=== PATIENT | female | born 1945 | race Native Hawaiian/Other Pacific Islander ===

== ENCOUNTER → 2021-01-15 14:17 | Outpatient (CLI) | payer MEDICARE, OTHER, SELFPAY ==
--- NOTE | 2021-01-15 | DI.MG.S_ITS ---
BILATERAL DIGITAL SCREENING MAMMOGRAM 3D/2D WITH CAD: 01/15/2021 CLINICAL: Routine screening. Family history of breast cancer. Comparison is made to exams dated: 05/04/2016 mammogram, 04/21/2015 mammogram, and 05/09/2013 mammogram - [facility]. There are scattered fibroglandular elements in both breasts. Current study was also evaluated with a Computer Aided Detection (CAD) system. There is a benign mass in the right breast. There also are benign calcifications in the right breast. No significant masses, calcifications, or other findings are seen in either breast. There has been no significant interval change. IMPRESSION: BENIGN There is no mammographic evidence of malignancy. A 1 year screening mammogram is recommended. This exam was interpreted at Station ID: [id number]. NOTE: For mammograms, a report in lay terms will be sent to the patient. Approximately 15% of breast malignancies will not be visualized mammographically. In the management of a palpable breast mass, a negative mammogram must not discourage biopsy of a clinically suspicious lesion. Electronically Signed By: Ivelisse ramirez/[place]:01/15/2021 15:17:48 letter sent: Normal Exam ACR BI-RADS Category 2: Benign Finding(s) 3342F
== END ==
PROVIDERS: PCP Internal Medicine; Referring Provider Internal Medicine; Visit Provider Internal Medicine
DX: Z12.31 Encounter for screening mammogram for malignant neoplasm of breast (principal); Z80.3 Family history of malignant neoplasm of breast
CPT/HCPCS: 77063; 77067

== ENCOUNTER → 2021-02-27 14:49 | Outpatient (CLI) | payer MEDICARE, OTHER, SELFPAY ==
--- NOTE | 2021-02-27 | DI.RAD.S_ITS ---
PROCEDURE: XR CHEST 2V INDICATIONS: HEMOPTYSIS TECHNIQUE: 2 views of the chest were acquired. COMPARISON: [facility], CT, CT CHEST WO CON, 03/03/2021, 14:45. FINDINGS: Surgical changes and devices: None. Lungs and pleura: Diffuse bilateral interstitial opacities. There is a calcification in the left upper lung field in the left upper hilum. Bullous changes in the left lower lung. Lungs are clear. No pleural effusions or pneumothorax. Mediastinum: Mediastinal contours are normal. Heart size is normal. Bones and chest wall: No suspicious bony abnormalities. Soft tissues appear unremarkable. IMPRESSION: 1. Bullous changes in the left lower lung field. 2. Calcifications in the left hilum/left upper lobe. Dictated by: Shiraz [place] M.D. on 03/06/2021 at 8:21 Approved by: Shiraz [place] M.D. on 03/06/2021 at 8:23
== END ==
PROVIDERS: PCP Internal Medicine; Referring Provider Internal Medicine; Visit Provider Internal Medicine
DX: R04.2 Hemoptysis (principal); J98.4 Other disorders of lung; M40.294 Other kyphosis, thoracic region
CPT/HCPCS: 71046

== ENCOUNTER → 2021-03-03 14:40 | Outpatient (CLI) | payer MEDICARE, OTHER, SELFPAY ==
--- NOTE | 2021-03-03 | DI.CT.S_ITS ---
PROCEDURE: CT CHEST WO CON INDICATIONS: Hemoptysis TECHNIQUE: Noncontrast 5 mm thick sections acquired from the pulmonary apices to the posterior costophrenic angles. 1 mm lung window, 5 mm thick coronal and sagittal and 7 mm axial MIP reformats were then acquired. For radiation dose reduction, the following was used: automated exposure control, adjustment of mA and/or kV according to patient size. COMPARISON: The prior recent chest radiograph dated 02/27/2021 is not available for viewing at the time of this study. FINDINGS: Image quality: Excellent. Lungs and pleura: Within the left lung, prominent peribronchial cysts are seen. Associated left-sided volume loss can be seen. No acute air space opacities. No pleural effusions or pneumothorax. Central and peripheral airways are patent and normal in caliber. Mediastinum: Heart size is normal. No pericardial effusion. No mediastinal adenopathy by size criteria. Calcified mediastinal lymph nodes are seen. Thoracic aorta and central pulmonary arteries are normal in size. Esophagus is normal in caliber. No hiatal hernia. Bones and chest wall: No suspicious bony lesions. Accentuated thoracic kyphosis is seen. Age-appropriate bony degenerative changes are seen. No vertebral body compression fractures. No axillary or supraclavicular adenopathy by size criteria. Thyroid gland demonstrates no significant noncontrast abnormality. Abdomen: Left retroperitoneal clips are seen. The visualized portions of the upper abdominal structures are otherwise unremarkable for imaging technique. IMPRESSION: Prominent peribronchial cysts are seen on the left. These findings are nonspecific, although a chronic infection/chronic inflammatory change is most likely. Please consider TATE infection as well as allergic bronchopulmonary aspergillosis. Aspiration is possible, yet considered to be less likely. Incidental note is made of: Prior granulomatous exposure. Left retroperitoneal clips Accentuated thoracic kyphosis Dictated by: Lorenzo Parker M.D. on 03/03/2021 at 17:11 Transcribed by: ITALO on 03/03/2021 at 17:15 Approved by: Lorenzo Parker M.D. on 03/04/2021 at 11:57
== END ==
PROVIDERS: PCP Internal Medicine; Referring Provider Internal Medicine; Visit Provider Internal Medicine
DX: R04.2 Hemoptysis (principal); J98.4 Other disorders of lung
CPT/HCPCS: 71250

== ENCOUNTER → 2021-12-23 09:56 | Outpatient (CLI) | payer MEDICARE, OTHER, SELFPAY | PROVIDERS: PCP Internal Medicine; Referring Provider Internal Medicine; Visit Provider Internal Medicine | DX: Z78.0 Asymptomatic menopausal state (principal); Z13.820 Encounter for screening for osteoporosis; M85.89 Other specified disorders of bone density and structure, multiple sites | CPT/HCPCS: 77080 ==

== ENCOUNTER → 2022-02-03 11:01 | Outpatient (CLI) | payer MEDICARE, OTHER, SELFPAY ==
--- NOTE | 2022-02-03 | DI.MG.S_ITS ---
BILATERAL DIGITAL SCREENING MAMMOGRAM 3D/2D WITH CAD: 02/03/2022 CLINICAL: Routine screening. Comparison is made to exams dated: 01/15/2021 mammogram - , 05/04/2016 mammogram, and 04/21/2015 mammogram - [facility]. There are scattered areas of fibroglandular density in both breasts (category b / 25%-50% glandular tissue). Current study was also evaluated with a Computer Aided Detection (CAD) system. There is a benign mass in the right breast. There also are benign calcifications in the right breast. No significant masses, calcifications, or other findings are seen in either breast. There has been no significant interval change. IMPRESSION: BENIGN There is no mammographic evidence of malignancy. A 1 year screening mammogram is recommended. Based on the Tyrer Cuzick model (a risk assessment model) the patient's lifetime risk is 4.1% and her 10 year risk is 3.7%. According to the ACR, ACS, and NCCN guidelines, an annual breast MRI exam along with mammogram is recommended if the patient's lifetime risk is 20% or greater. This exam was interpreted at Station ID: [id number]. NOTE: For mammograms, a report in lay terms will be sent to the patient. Approximately 15% of breast malignancies will not be visualized mammographically. In the management of a palpable breast mass, a negative mammogram must not discourage biopsy of a clinically suspicious lesion. Electronically Signed By: Shailesh Randall M.D., jr/[place]:02/03/2022 13:02:30 letter sent: Normal Exam ACR BI-RADS Category 2: Benign Finding(s) 3342F
== END ==
PROVIDERS: PCP Internal Medicine; Referring Provider Internal Medicine; Visit Provider Internal Medicine
DX: Z12.31 Encounter for screening mammogram for malignant neoplasm of breast (principal)
CPT/HCPCS: 77063; 77067

== ENCOUNTER → 2024-12-17 15:38 | Outpatient (CLI) | payer MEDICARE, OTHER, SELFPAY ==
--- NOTE | 2024-12-17 15:41 | DI.RAD.S_ITS ---
PROCEDURE: XR CHEST 2V INDICATIONS: BROCHIECTASIS ACUTE FLARE TECHNIQUE: 2 views of the chest were acquired. COMPARISON: [facility], CR, XR CHEST 2V, 02/27/2021, 14:45. FINDINGS: Surgical changes and devices: None. Lungs and pleura: Chronic appearing left basilar scarring and/or atelectasis. Calcific density adjacent to the aortic arch is stable in appearance. No evidence of focal consolidation. No pleural effusions or pneumothorax. Mediastinum: Mediastinal contours are normal. Heart size is normal. Bones and chest wall: No suspicious bony abnormalities. Soft tissues appear unremarkable. IMPRESSION: Stable chronic findings within the left lung. Otherwise, no evidence of acute cardiopulmonary abnormality is seen. Dictated by: Reymundo Alfonso M.D. on 12/18/2024 at 5:00 Approved by: Reymundo Alfonso M.D. on 12/18/2024 at 5:44
[2024-12-17 16:22] LABS: Influenza A - CEPHEID Flu A NEGATIVE (NEGATIVE); Influenza B - CEPHEID Flu B NEGATIVE (NEGATIVE)
[2024-12-17 16:29] LABS: COVID-19 CEPHEID 4-PLEX PCR Negative (Negative)
== END ==
PROVIDERS: PCP Internal Medicine; Referring Provider Registered Nurse; Visit Provider Registered Nurse
DX: J47.1 Bronchiectasis with (acute) exacerbation (principal); R05.9 Cough, unspecified
CPT/HCPCS: 71046; 87637